=== PATIENT | male | born 1960 | race Two or more races ===

== ENCOUNTER 2018-05-26 12:34 | Outpatient (CLI) | payer OTHER | END 2018-05-26 12:37 | disposition home or self-care (01) | LOC: SONOGRAMA 12:34 | DX: E04.1 Nontoxic single thyroid nodule (principal) ==

== ENCOUNTER 2025-01-15 13:14 | Outpatient (CLI) | payer OTHER | END 2025-01-15 13:20 | disposition home or self-care (01) | LOC: RAD 13:14 | PROVIDERS: ATTEND Internal Medicine | DX: M15.0 Primary generalized (osteo)arthritis (principal) ==

== ENCOUNTER → 2025-01-24 08:27 | Outpatient (CLI) | payer OTHER | END | disposition home or self-care (01) | LOC: NUCLEAR 08:27 | PROVIDERS: ATTEND Internal Medicine | DX: I87.2 Venous insufficiency (chronic) (peripheral) (principal); I70.0 Atherosclerosis of aorta ==